=== PATIENT | female | born 1990 | race Caucasian/White ===

== ENCOUNTER 2018-06-04 21:50 | Inpatient (IN) | payer OTHER ==
[2018-06-04] MEDS: ELECTROLYTE-148 SOLN 1,000 ML IV SCH (23:00)
[2018-06-04 23:39] VITALS: BMI 29.5
[2018-06-04] MEDS ORDERED: FENTANYL/BUPIVACAINE/NS/PF - PCEA - 50 ML DISP.SYRIN EP ONE (23:50)
[2018-06-05] MEDS: FENTANYL/BUPIVACAINE/NS/PF - PCEA - 50 ML DISP.SYRIN EP SCH (00:15)
[2018-06-05] MEDS ORDERED: NALOXONE HCL 0.4 MG/ML VIAL IVPUSH PRN (00:25)
[2018-06-05] MEDS: ELECTROLYTE-148 SOLN 1,000 ML IV SCH (00:30)
[2018-06-05] MEDS ORDERED: OXYTOCIN 20 UNITS in 0.9% NS 20 UNIT/1,000 ML INFUS.BAG IV ONE (01:17)
[2018-06-05] MEDS ORDERED: IBUPROFEN 600 MG TABLET (FP) PO PRN (02:24)
[2018-06-05] MEDS ORDERED: WITCH HAZEL 50% (TUCKS) 40 PAD/JAR PAD TP PRN (02:24)
[2018-06-05] MEDS ORDERED: ACETAMINOPHEN 325 MG TABLET (FP) PO PRN (02:24)
[2018-06-05] MEDS ORDERED: BENZOCAINE 28 GM HEMORRHOIDAL OINTMENT TP PRN (02:24)
[2018-06-05] MEDS ORDERED: BISACODYL 10 MG SUPP.RECT RC PRN (02:24)
[2018-06-05] MEDS ORDERED: BENZOCAINE 20% 57 GM BOTTLE TP PRN (02:24)
[2018-06-05] MEDS ORDERED: METHYLERGONOVINE MALEATE 0.2 MG/1 ML AMP IM PRN (02:24)
--- NOTE | 2018-06-05 02:28 | PN ---
Delivery - Delivery Vaginal Delivery: V-Alli Type of Anesthesia: Epidural Episiotomy/Laceration: Midline EBL (cc): 300 Delivery, Single - Feeding Plan Initial Plan: Elected not to breastfeed exclusively throughout hospitalization Remarks - Remarks Remarks: Vaginal after of a live infant boy over midline episiotomy. Nose / Oropharynx suctioned @ perineum. Cord clamped and cut. Placenta expelled spontaneously intact. Midline episiotomy repaired with 2.0 Chromic.
[2018-06-05] MEDS ORDERED: ELECTROLYTE-148 SOLN 1,000 ML IV SCH (02:30)
[2018-06-05] MEDS ORDERED: OXYTOCIN 20 UNITS in 0.9% NS 20 UNIT/1,000 ML INFUS.BAG IV SCH (02:30)
--- NOTE | 2018-06-05 02:35 | HP ---
Past Medical History - Admission Chief Complaint: Labor pain History of Present Illness: 27 yo @ 39 weeks gestation, EDC 06/09/18, admitted for active labor. Patient had a previous and now desires . History Source: Patient Limitations to Obtaining History: No Limitations - Past Medical History ...: 3 ...Para: 1 ...Term: 0 ...: 1 ...Spon : 0 ...Induced : 1 ...Multiple Gestation: 0 ...EDC by Sono: 06/09/18 - Past Surgical History Past Surgical History: Yes: Hx Myomectomy: No Hx Transabdominal Cerclage: No - Smoking History Smoking history: Never smoked Have you smoked in the past 12 months: No Aproximately how many cigarettes per day: 1 - Alcohol/Substance Use Hx Alcohol Use: No History of Substance Use: reports: None - Social History Usual Living Arrangement: Yes: With Significant Other History of Recent Travel: No Home Medications - Allergies Allergies/Adverse Reactions: Allergies Allergy/AdvReac Type Severity Reaction Status Date / Time No Known Allergies Allergy Verified 06/05/18 00:48 - Home Medications Home Medications: Ambulatory Orders NK [No Known Home Medication] 05/29/18 Family Disease History - Family Disease History Family History: Unremarkable Review of Systems - Review of Systems Constitutional: reports: No Symptoms Eyes: reports: No Symptoms HENT: reports: No Symptoms Neck: reports: No Symptoms Cardiovascular: reports: No Symptoms Respiratory: reports: No Symptoms Gastrointestinal: reports: No Symptoms Genitourinary: reports: Pain Breasts: reports: No Symptoms Reported Musculoskeletal: reports: No Symptoms Integumentary: reports: No Symptoms Neurological: reports: No Symptoms Endocrine: reports: No Symptoms Hematology/Lymphatic: reports: No Symptoms Psychiatric: reports: No Symptoms Pain Intensity: 7 Physical Exam - Maternity Vital Signs: Vital Signs Temperature 98.3 F 06/05/18 01:00 Pulse Rate 71 06/05/18 00:15 Respiratory Rate 20 06/05/18 00:15 Blood Pressure 121/66 06/05/18 00:15 O2 Sat by Pulse Oximetry (%) 100 06/05/18 00:15 Constitutional: Yes: Well Nourished Eyes: Yes: Conjunctiva Clear HENT: Yes: Atraumatic Neck: Yes: Supple Cardiovascular: Yes: Regular Rate and Rhythm Lungs: Clear to auscultation - Abdominal Exam/OB Number of Fetuses: Single Presentation: Vertex - Vaginal Exam/OB Dilatation (cm): 4 Station: -2 - Physical Exam Musculoskeletal: Yes: WNL Extremities: Yes: WNL ...Motor Strength: WNL Psychiatric: Yes: Alert, Oriented Problem List - Problems (1) Pain during labor Code(s): O99.89 - OTH DISEASES AND CONDITIONS COMPL PREG/CHLDBRTH; R52 - PAIN, UNSPECIFIED (2) (vaginal after ) Code(s): O34.219 - MATERNAL CARE FOR UNSP TYPE SCAR FROM PREVIOUS DEL Assessment/Plan Active labor Admit to L&D for Consent signed Epidural anesthesia Anticipate successful
[2018-06-05] MEDS: FERROUS SO4 325 MG TABLET (FP) PO SCH ×2 (09:26→18:42)
[2018-06-05] MEDS: PRENATAL VITAMINS W/ FOLIC ACID TABLET (FP) PO SCH (09:26)
[2018-06-06] MEDS: FENTANYL/BUPIVACAINE/NS/PF - PCEA - 50 ML DISP.SYRIN EP SCH (01:41)
[2018-06-06 07:50] LABS: BASO % 0.6 % (0-2.0); EOS % 1.1 % (0-4.5); HEMATOCRIT 25.6 % (32.4-45.2); HEMOGLOBIN 8.3 GM/dL (10.7-15.3); LYMPH % 16.3 % (8-40); MCH 24.3 pg (25.7-33.7); MCHC 32.6 g/dl (32.0-36.0); MEAN CELL VOLUME 74.5 fl (80-96); MEAN PLT VOLUME 10.3 fl (7.5-11.1); MONO % 4.9 % (3.8-10.2); NEUT % 77.1 % (42.8-82.8); PLATELET COUNT 137 K/MM3 (134-434); RBC 3.43 M/mm3 (3.60-5.2); RDW 15.6 % (11.6-15.6); WHITE BLOOD COUNT 8.9 K/mm3 (4.0-10.0)
[2018-06-06] MEDS: FERROUS SO4 325 MG TABLET (FP) PO SCH ×2 (08:15→17:47)
[2018-06-06] MEDS: PRENATAL VITAMINS W/ FOLIC ACID TABLET (FP) PO SCH (10:33)
--- NOTE | 2018-06-06 20:59 | PN ---
Post Progress Note - Subjective Subjective: 27 yo Para 2 status post vaginal delivery, seen and evaluated. Doing well. Post Day: 1 Type of Delivery: Vital Signs: Vital Signs Temperature 98 F 06/06/18 10:00 Pulse Rate 66 06/06/18 10:00 Respiratory Rate 20 06/06/18 10:00 Blood Pressure 124/64 06/06/18 10:00 O2 Sat by Pulse Oximetry (%) 100 06/05/18 03:15 Breast Exam: Yes: Soft Uterus: Yes: Fundus Firm Abdomen/GI: Yes: Abdomen soft, Tolerating PO Lochia: Yes: Rubra Lochia, amount: Moderate Extremities: Yes: Calves non-tender Perineum: Yes: Episiotomy (Healing) Activity: Ambulating - Labs Labs: CBC WBC 8.9 K/mm3 (4.0-10.0) 06/06/18 07:00 RBC 3.43 M/mm3 (3.60-5.2) L 06/06/18 07:00 Hgb 8.3 GM/dL (10.7-15.3) L 06/06/18 07:00 Hct 25.6 % (32.4-45.2) L D 06/06/18 07:00 MCV 74.5 fl (80-96) L 06/06/18 07:00 MCH 24.3 pg (25.7-33.7) L 06/06/18 07:00 MCHC 32.6 g/dl (32.0-36.0) 06/06/18 07:00 RDW 15.6 % (11.6-15.6) 06/06/18 07:00 Plt Count 137 K/MM3 (134-434) 06/06/18 07:00 MPV 10.3 fl (7.5-11.1) 06/06/18 07:00 Absolute Neuts (auto) 6.9 # 06/06/18 07:00 Neutrophils % 77.1 % (42.8-82.8) 06/06/18 07:00 Lymphocytes % 16.3 % (8-40) D 06/06/18 07:00 Monocytes % 4.9 % (3.8-10.2) 06/06/18 07:00 Eosinophils % 1.1 % (0-4.5) 06/06/18 07:00 Basophils % 0.6 % (0-2.0) 06/06/18 07:00 Nucleated RBC % 0 % (0-0) 06/06/18 07:00 Problem List - Problems (1) Pain during labor Code(s): O99.89 - OTH DISEASES AND CONDITIONS COMPL PREG/CHLDBRTH; R52 - PAIN, UNSPECIFIED (2) (vaginal after ) Code(s): O34.219 - MATERNAL CARE FOR UNSP TYPE SCAR FROM PREVIOUS DEL Assessment/Plan Status post Stable Continue routine care
[2018-06-06] MEDS ORDERED: SENNOSIDES/DOCUSATE COMBO (SENNA PLUS) TABLET (UD) PO PRN (22:00)
--- NOTE | 2018-06-07 06:20 | DS ---
Physical Exam-APPLIANCE ASSEMBLER Vital Signs: Vital Signs Temperature 98.9 F 06/06/18 22:00 Pulse Rate 61 06/06/18 22:00 Respiratory Rate 18 06/06/18 22:00 Blood Pressure 104/69 06/06/18 22:00 O2 Sat by Pulse Oximetry (%) 100 06/05/18 03:15 Constitutional: Yes: Well Nourished Eyes: Yes: Conjunctiva Clear HENT: Yes: Atraumatic Neck: Yes: Supple Cardiovascular: Yes: Regular Rate and Rhythm Respiratory: Yes: Regular Gastrointestinal: Yes: Normal Bowel Sounds Pelvis: Yes: WNL External Genitalia: Yes: Normal Vaginal Exam: Yes: Normal Cervix: Yes: Normal Uterus: Yes: Firm Breast(s): Yes: WNL Extremities: Yes: WNL Neurological: Yes: Alert, Oriented ...Motor Strength: WNL Psychiatric: Yes: Alert, Oriented Labs: CBC, BMP 06/06/18 07:00 Delivery - Delivery Vaginal Delivery: V-Alli Type of Anesthesia: Epidural Episiotomy/Laceration: Midline EBL (cc): 300 Delivery, Single - Stages of Labor Date 1st Stage Initiatied: 06/04/18 Time 1st Stage Initiated: 21:00 Date 2nd Stage Initiated: 06/05/18 Time 2nd Stage Initiated: 01:13 Date of Delivery: 06/05/18 Time of Delivery: 02:04 Time Placenta Delivered: 02:06 - 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 Gender: Male Weight: 7 lb 1.5 oz Position: Left, OA Total Hours ROM (Hrs/Mins): 3hrs 21min - 1 Minute Total Score: 9 5 Minutes Total Score: 9 - Feeding Plan Initial Plan: Elected not to breastfeed exclusively throughout hospitalization Discharge Summary Reason For Visit: ADMIT-LABOR Current Active Problems History of vaginal after (Acute) Pain during labor (Acute) (vaginal after ) (Acute) Procedures: Principal: Vaginal after Hospital Course: Routine care Condition: Good - Instructions Diet, Activity, Other Instructions: Regular diet No douching, no sexual intercourse x 6 weeks F/U with MD in 6 weeks Disposition: HOME - Home Medications Comprehensive Discharge Medication List: Ambulatory Orders NK [No Known Home Medication] 05/29/18
[2018-06-07] MEDS: PRENATAL VITAMINS W/ FOLIC ACID TABLET (FP) PO SCH (09:04)
[2018-06-07] MEDS: FERROUS SO4 325 MG TABLET (FP) PO SCH (09:04)
[2018-06-07 12:24] VITALS: BP 114/64; PULSE 58; TEMP 98.5
== END 2018-06-07 11:20 | disposition home or self-care (01) | DRG 560 ==
LOC: JDEL 21:50 → JLDR 22:45 → J3W 06-05 03:48
PROVIDERS: ADMIT Obstetrics & Gynecology; ATTEND Obstetrics & Gynecology
PROC: 10E0XZZ Delivery of Products of Conception, External Approach (ICD-10-PCS; principal; 2018-06-05)
PROC: 0W8NXZZ Division of Female Perineum, External Approach (ICD-10-PCS; 2018-06-05)
DX: O34.211 Maternal care for low transverse scar from previous cesarean delivery (principal); Z3A.39 39 weeks gestation of pregnancy; Z37.0 Single live birth
CPT/HCPCS: 36415; 59409; 85025

== ENCOUNTER 2019-02-07 11:58 | Emergency (ER) | payer OTHER ==
[2019-02-07 12:08] VITALS: BP 109/56; PULSE 78; TEMP 97.9; BMI 26.4
[2019-02-07] MEDS ORDERED: IBUPROFEN 600 MG TABLET (FP) PO ONE ×2 (12:24→12:26)
--- NOTE | 2019-02-07 12:41 | PDOC ---
History of Present Illness - General Chief Complaint: Injury Stated Complaint: LT ANKLE INJURY Time Seen by Provider: 02/07/19 12:19 History Source: Patient Exam Limitations: No Limitations - History of Present Illness Initial Comments: 02/07/19 12:35 28 yo F w/ no sig PMHx comes in c/o L ankle pain since this am. She was going down the stairs, missed her step, twisted her R foot and heard a pop. Denies fall, no head trauma/injury, no LOC, no injuries anywhere else, no numbness/ tingling, no sensory deficits. Past History - Past Medical History Allergies/Adverse Reactions: Allergies Allergy/AdvReac Type Severity Reaction Status Date / Time No Known Allergies Allergy Verified 02/07/19 12:05 Home Medications: Ambulatory Orders Acetaminophen [Tylenol] 975 mg PO Q4H 3 Days #20 tablet 02/07/19 Ibuprofen 600 mg PO Q6H 3 Days #15 tablet 02/07/19 Oxycodone HCl/Acetaminophen [Percocet 5-325 mg Tablet] 1 tab PO Q6H 3 Days #10 tablet MDD 4 02/07/19 Asthma: No Cancer: No Cardiac Disorders: No Diabetes: No HTN: No Hypercholesterolemia: Yes Seizures: No Thyroid Disease: Yes - Immunization History Immunization Up to Date: Yes - Suicide/Smoking/Psychosocial Hx Smoking Status: Yes Smoking History: Never smoked Have you smoked in the past 12 months: No Number of Cigarettes Smoked Daily: 1 Hx Alcohol Use: No Drug/Substance Use Hx: No Substance Use Type: None Hx Substance Use Treatment: No Review of Systems - Review of Systems Able to Perform ROS?: Yes Constitutional: No: Chills, Fever, Malaise, Night Sweats HEENTM: No: Eye Pain, Recent change in vision, Throat Pain Respiratory: No: Cough, Shortness of Breath Cardiac (ROS): No: Chest Pain, Palpitations, Chest Tightness ABD/GI: No: Diarrhea, Nausea, Vomiting, Abdominal cramping : No: Dysuria, Hematuria Musculoskeletal: No: Back Pain Integumentary: No: Rash Neurological: No: Headache, Numbness, Dizziness Psychiatric: No: Change in Appetite Endocrine: No: Unexplained Weight Loss *Physical Exam - Vital Signs Last Vital Signs Temp Pulse Resp BP Pulse Ox 97.9 F 78 20 109/56 L 99 02/07/19 12:05 03/09/19 12:05 02/07/19 12:05 02/07/19 12:05 02/07/19 12:05 - Physical Exam General Appearance: Yes: Nourished. No: Apparent Distress HEENT: positive: SHO, Normal ENT Inspection, Normal Voice. negative: Pale Conjunctivae, Scleral Icterus (R), Scleral Icterus (L) Neck: positive: Supple. negative: Decreased range of motion, Tender midline Respiratory/Chest: positive: Lungs Clear, Normal Breath Sounds. negative: Respiratory Distress, Accessory Muscle Use Cardiovascular: positive: Regular Rhythm, Regular Rate Gastrointestinal/Abdominal: positive: Normal Bowel Sounds, Soft. negative: Tender Extremity: positive: Normal Capillary Refill, Tender, Other (LLE with L foot swelling, bruising and tenderness laterally. FROM and 5/5 strength L ankle and foot. Good pulses, good cap refill, full sensory function. L ankle unremarkable with FROM and 5/5 strength. L knee unremarkable, non tender w/ FROM). negative : Pedal Edema Integumentary: positive: Normal Color, Dry. negative: Jaundice, Rash Neurologic: positive: Fully Oriented, Alert, Normal Mood/Affect Moderate Sedation - Procedure Monitoring Vital Signs: Procedure Monitoring Vital Signs Temperature 97.9 F 02/07/19 12:05 Pulse Rate 78 02/07/19 12:05 Respiratory Rate 20 02/07/19 12:05 Blood Pressure 109/56 L 02/07/19 12:05 O2 Sat by Pulse Oximetry (%) 99 02/07/19 12:05 Procedures - Splinting Splint Location: Left: Foot Pre-Proc Neuro Vasc Exam: normal Hand-Made Type: orthoglass Splint Type: Yes: Short Leg Post-Proc Neuro Vasc Exam: normal Gonzalez Bandage: yes, 3", 4" Post splint xray: Yes ED Treatment Course - RADIOLOGY Radiology Studies Ordered: Category Date Time Status FOOT-LEFT [RAD] Stat Radiology 02/07/19 12:24 Ordered - Medications Given in the ED: ED Medications Discontinued Medications Generic Name Dose Route Start Last Admin Trade Name Freq PRN Reason Stop Dose Admin Ibuprofen 600 mg 02/07/19 12:24 02/07/19 12:28 Motrin - PO 02/07/19 12:25 600 mg ONCE ONE Administration Medical Decision Making - Medical Decision Making 02/07/19 12:44 28 yo F w/ ankle injury R/O fracture. WIll give ibuprofen, do xrays and reassess 02/07/19 13:22 (+)base of 5th metatarsal fracture. Patient placed in a posterior splint, she will follow up with Dr. Briscoe from othopedics Non weight bearing Crutches provided. Percocet for pain, only if tylenol and motrin are not working. Pt knows not to take tylenol and percocet together. Return for worsening/concerning symptoms Pt verbalizes understanding and agrees with plan 02/07/19 14:43 02/07/19 15:11 *DC/Admit/Observation/Transfer Diagnosis at time of Disposition: Metatarsal fracture Qualifiers: Encounter type: initial encounter Metatarsal bone: fifth Fracture type: closed Fracture alignment: nondisplaced Laterality: left Qualified Code(s): S92.355A - Nondisplaced fracture of fifth metatarsal bone, left foot, initial encounter for closed fracture - Discharge Dispostion Disposition: HOME Condition at time of disposition: Stable - Prescriptions Prescriptions: Acetaminophen [Tylenol] 975 mg PO Q4H 3 Days #20 tablet Ibuprofen 600 mg PO Q6H 3 Days #15 tablet Oxycodone HCl/Acetaminophen [Percocet 5-325 mg Tablet] 1 tab PO Q6H 3 Days #10 tablet MDD 4 - Referrals Referrals: Andrés Pearce [Primary Care Provider] - Robin Briscoe DO [Staff Physician] - - Patient Instructions Printed Discharge Instructions: DI for Foot Fracture Additional Instructions: Do not bear weight on the left foot. Call Dr. Briscoe's office to schedule an appointment in a week. Do not get the splint wet. Use crutches as provided. Return for worsening/concerning symptoms including numbness/tingling, decreased sensory function. - Post Discharge Activity Forms/Work/School Notes: Back to Work
== END 2019-02-07 15:02 | disposition home or self-care (01) ==
LOC: JERFT 11:58
PROC: 2W3RX1Z Immobilization of Left Lower Leg using Splint (ICD-10-PCS; principal; 2019-02-07)
DX: S92.355A Nondisplaced fracture of fifth metatarsal bone, left foot, initial encounter for closed fracture (principal); W10.8XXA Fall (on) (from) other stairs and steps, initial encounter; Y93.89 Activity, other specified; Y92.89 Other specified places as the place of occurrence of the external cause; Y99.8 Other external cause status
CPT/HCPCS: 29515; 73630-TC-LT; 99281-25

== ENCOUNTER 2020-02-08 11:10 | Emergency (ER) | payer OTHER ==
[2020-02-08 11:41] VITALS: BP 125/82; PULSE 91; TEMP 97.2; BMI 25.4
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
[2020-02-08] MEDS ORDERED: ACETAMINOPHEN 500 MG TABLET (FP) PO ONE (14:50)
== END 2020-02-08 15:17 | disposition home or self-care (01) ==
LOC: JER 11:10
DX: R51 Headache (principal); Y04.8XXA Assault by other bodily force, initial encounter; Y93.89 Activity, other specified; Y92.003 Bedroom of unspecified non-institutional (private) residence as the place of occurrence of the external cause; Y07.03 Male partner, perpetrator of maltreatment and neglect; E78.00 Pure hypercholesterolemia, unspecified
CPT/HCPCS: 70450-TC; 70490-TC; 84703; 99284-25